=== PATIENT | male | born 1985 | race Caucasian/White ===

== ENCOUNTER 2018-08-09 14:28 | Emergency (ER) | payer OTHER ==
[2018-08-09] MEDS: LORAZEPAM 2 MG INJ IV ×2 (15:42→17:22)
[2018-08-09] MEDS: SOD CHLORIDE 0.9% 1,000 ML IV (15:42)
[2018-08-09 15:45] LABS: WHITE BLOOD COUNT 6.1 10^3/ul (4.8-10.8)
[2018-08-09 15:45] LABS: ABNORMAL IP MESSAGE 1; HEMATOCRIT 38.6 % (42.0-52.0); HEMOGLOBIN 13.3 g/dl (14.0-18.0); MEAN CORPUSCULAR HEMOGLOBIN 32.4 pg (29.0-33.0); MEAN CORPUSCULAR HGB CONC 34.5 g/dl (32.0-37.0); MEAN CORPUSCULAR VOLUME 94.1 fl (82.0-101.0); PLATELET COUNT 166 10^3/UL (140-415); POSITIVE DIFF @See below; RED CELL DISTRIBUTION WIDTH 12.5 % (11.5-14.5)
[2018-08-09 15:58] LABS: ADD MAN DIFF? YES
[2018-08-09 16:03] LABS: ALANINE AMINOTRANSFERASE 511 IU/L (13-69); ALBUMIN 5.5 g/dl (3.3-4.9); ALBUMIN/GLOBULIN RATIO 1.71; ALKALINE PHOSPHATASE 53 IU/L (42-121); ANION GAP 17 (5-13); ASPARTATE AMINO TRANSFERASE 378 IU/L (15-46); BILIRUBIN,INDIRECT 0.9 mg/dl (0-1.1); BILIRUBIN,TOTAL 0.9 mg/dl (0.2-1.3); BLOOD UREA NITROGEN 14 mg/dl (7-20); CALCIUM 10.6 mg/dl (8.4-10.2); CARBON DIOXIDE 24 mmol/L (21-31); CHLORIDE 97 mmol/L (97-110); CREATININE 1.19 mg/dl (0.61-1.24); Estimated GFR > 60 mL/min (>60); GLUCOSE 88 mg/dl (70-220); POTASSIUM 3.5 mmol/L (3.5-5.1); SODIUM 138 mmol/L (135-144); TOTAL PROTEIN 8.7 g/dl (6.1-8.1)
[2018-08-09 16:45] LABS: SEGMENTED NEUTROPHILS (M) % 79 % (39-77)
[2018-08-09 16:46] LABS: BAND NEUTROPHILS % (M) 1 % (0-4); BASOPHILS % (M) 1 % (0-2); GIANT THROMBO% (M) 5 % (0-0); LYMPHOCYTES #M 0.3 10^3/ul (0.8-2.9); LYMPHOCYTES % (M) 6 % (15-51); MONOCYTE #M 0.7 10^3/ul (0.3-0.9); MONOCYTES % (M) 12 % (0-11); PLATELET ESTIMATE NORMAL; POIKILOCYTOSIS 1+ (0-0); REACTIVE LYMPHOCYTES% (M) 1 % (0-0); SEG NEUT #M 4.8 10^3/ul (1.6-7.5)
[2018-08-09] MEDS: NICARDipine HCL 30 MG CAPSULE PO (17:22)
== END 2018-08-09 17:58 | disposition home or self-care (01) ==
LOC: E/R 17:58
DX: R44.1 Visual hallucinations (principal); R40.2142 Coma scale, eyes open, spontaneous, at arrival to emergency department; R40.2362 Coma scale, best motor response, obeys commands, at arrival to emergency department; R40.2252 Coma scale, best verbal response, oriented, at arrival to emergency department
CPT/HCPCS: 36415; 80053; 85025; 96374; 96376; 99284-25